=== PATIENT | male | born 1960 | race Caucasian/White ===

== ENCOUNTER → 2017-06-05 | Outpatient (CLI) | payer OTHER | END | disposition home or self-care (01) | LOC: KCIC MRI 07:45 | DX: M48.02 Spinal stenosis, cervical region (principal); M48.061 Spinal stenosis, lumbar region without neurogenic claudication; M47.892 Other spondylosis, cervical region; M47.897 Other spondylosis, lumbosacral region; M12.88 Other specific arthropathies, not elsewhere classified, other specified site; M51.27 Other intervertebral disc displacement, lumbosacral region | CPT/HCPCS: 72141; 72148 ==

== ENCOUNTER → 2020-06-23 | Outpatient (CLI) | payer OTHER ==
[~2020-06-23] MED LIST: DEXA4TAB63 PO; DOXY100C2 PO; GABA300C18 PO; HYDR-2145 PO; HYDR-2765 PO; PANT40TA77 PO; SUCR1ORA5 PO; SUCR1TAB PO; TAMS0.4C97 PO
--- NOTE | 2020-06-23 11:12 | KCIC ---
MR LUMBAR SPINE WO -[id number] History: Reason: LUMBAGO WITH SCIATICA LEFT SIDE / Spl. Instructions: / History: LBP with previous s urgery in 2011. BLE pain, alternating left and right leg Technique: Multiplanar, multi sequential MR imaging was performed of the lumbar spine. Comparison: MRI June 05, 2017 Findings: Transitional lumbosacral anatomy. In keeping with previous numbering system L5-S1 disc space is ident ified on axial T2 sequence 6 image 20. Slight retrolisthesis L5 on S1. Normal vertebral body height. No fracture. Conus terminates at the normal location. No evidence of nerve root clumping. L1-L2: No canal or neuroforaminal narrowing. L2-L3: No canal or neuroforaminal narrowing. L3-L4: Small disc bulge. Mild facet arthropathy. No canal or neuroforaminal narrowing. L4-L5: Small disc bulge. Mild facet arthropathy. No canal or neuroforaminal narrowing. L5-S1: Disc height loss. Disc bulge. Postoperative changes right hemilaminectomy. Moderate facet art hropathy. No canal narrowing. Mild to moderate bilateral neuroforaminal narrowing, unchanged. Impression: 1. Transitional lumbosacral anatomy, as described. 2. Multilevel lumbar spondylosis most prominent L5-S1, unchanged. Electronically signed by: Jaime Izaguirre DO (06/23/2020 11:09 AM) [id number]
== END ==
LOC: KCIC MRI 09:57
PROVIDERS: ATTEND Physician Assistant Medical
DX: M47.817 Spondylosis without myelopathy or radiculopathy, lumbosacral region (principal)
CPT/HCPCS: 72148

== ENCOUNTER → 2020-10-29 | Outpatient (CLI) | payer OTHER ==
[2020-08-20 11:00] VITALS: BP 119/73
--- NOTE | 2020-10-29 12:23 | RAD ---
PQRS Compliance Statement: One or more of the following individualized dose reduction techniques were utilized for this examinat ion: 1. Automated exposure control 2. Adjustment of the mA and/or kV according to patient size 3. Use of iterative reconstruction technique CT THORAX WO 10/29/2020 9:26 AM Indication: Pneumonia due to Covid 19 COMPARISON: None available. TECHNIQUE: Multiple axial CT images of the chest were obtained without intravenous contrast administr ation. Coronal and sagittal reformats are provided. FINDINGS: Peripheral reticular interstitial changes and groundglass opacities are identified throughout the andrea gs with relative subpleural sparing. No pleural effusions, pulmonary vascular congestion or pneumotho rax. Central airways are clear. No bronchial wall thickening. No honeycombing. No traction bronchiect asis. No focal consolidative change. Thyroid gland is normal in appearance. Right paratracheal lymph node measures 7 mm. Heart size within normal limits. Three-vessel coronary artery vascular calcificat ions are identified. Thoracic aorta is normal in course and caliber. Hypoattenuation of the hepatic p arenchyma suggestive of hepatic steatosis. Calcifications within the spleen likely represent sequela prior granulomatous exposure. No suspicious osseous abnormality is identified. IMPRESSION: Mild peripheral reticular interstitial changes with associated groundglass opacities noted throughout the lungs with lower lung zone predominance. Findings most favor pneumonitis of infectious/inflammat ory etiology, likely associated with recent Covid 19 pneumonia. 3 month follow-up chest CT could be o f benefit to assess for resolution or improvement. Electronically signed by: Petra Kruse MD (10/29/2020 12:21 PM) [id number]
== END ==
LOC: CT 09:24
PROVIDERS: ATTEND Internal Medicine Pulmonary Disease
DX: U07.1 COVID-19 (principal); J12.82 Pneumonia due to coronavirus disease 2019
CPT/HCPCS: 71250

== ENCOUNTER → 2020-11-06 | Day surgery (SDC) | payer OTHER ==
[~2020-11-06] VITALS: Ht 172.7 cm; Wt 100.9 kg
[~2020-11-06] MED LIST changes: +HYDROmorphone 2 MG/ML VIAL IVP PRN; +IV RINGERS,LACTATED 1000ML 1,000 ML IV SCH; +LIDOCAINE 2% PF 5 ML VIAL. ONE; +MORPHINE SULFATE 2 MG/ML VIAL. IVP PRN; +PROCHLORPERAZINE 10 MG/2 ML VIAL. IVP PRN; +PROPOFOL 10 MG/ML (20ML) VIAL. IV ONE; +fentaNYL PF VIAL 100 MCG/2 ML VIAL IVP PRN
[2020-11-06 06:26] VITALS: BP 126/74
[2020-11-06 07:49] VITALS: BP 115/69
== END | disposition home or self-care (01) ==
LOC: SURG 06:10
PROVIDERS: ATTEND Internal Medicine Gastroenterology
DX: R13.10 Dysphagia, unspecified (principal); K31.89 Other diseases of stomach and duodenum; K21.9 Gastro-esophageal reflux disease without esophagitis; G47.30 Sleep apnea, unspecified; M19.90 Unspecified osteoarthritis, unspecified site; Z79.899 Other long term (current) drug therapy; Z98.890 Other specified postprocedural states; Z72.89 Other problems related to lifestyle
CPT/HCPCS: 43235; 43450; J2704

== ENCOUNTER → 2020-12-17 | Outpatient (CLI) | payer OTHER ==
[2020-11-06 07:49] VITALS: BP 115/69
[~2020-12-17] MED LIST changes: +ALBU2.5V8 IH; -HYDROmorphone 2 MG/ML VIAL IVP PRN; +IOHEXOL 180 MG/ML 10 ML VIAL. ONE; -IV RINGERS,LACTATED 1000ML 1,000 ML IV SCH; -LIDOCAINE 2% PF 5 ML VIAL. ONE; -MORPHINE SULFATE 2 MG/ML VIAL. IVP PRN; -PROCHLORPERAZINE 10 MG/2 ML VIAL. IVP PRN; -PROPOFOL 10 MG/ML (20ML) VIAL. IV ONE; -fentaNYL PF VIAL 100 MCG/2 ML VIAL IVP PRN; +methylPREDNISolone ACETATE 40 MG/ML VIAL. ONE; +methylPREDNISolone ACETATE 80 MG/ML VIAL. ONE
--- NOTE | 2020-12-17 11:42 | PDOC1 ---
INITIAL PAIN CONSULT DATE OF SERVICE: DOS: DATE: 12/17/20 TIME: 11:35 CHIEF COMPLAINT: Chief Complaint: Low back and left greater than right lower extremity pain HISTORY OF PRESENT ILLNESS: 60-year-old male presents history of pain low back bilateral lower extremities left greater than right lower extremity pain since about 1979 but getting worse over the past 6 months or so not result of any specific injury or accident that he is aware of but getting more noticeable in the low back rating left lower extremity posterior gluteus posterior lateral thigh lateral anterior thigh and some on the right side as well but much more significant on the left this is worse with walking standing changing positions getting up from seated position standing for prolonged periods greater than 20 minutes patient reports it wakes him sleep about 3-4 times a night can affect his bladder control with some increased urgency but no incontinence patient reports that does affect his ability to walk fairly significantly. Patient has had physical therapy in the [facility] chiropractic treatment is doing exercise currently also had epidural injections in 2014 which were very helpful patient is taking hydrocodone as well as gabapentin both of which decrease in pain but only slightly patient reports pain is stabbing throbbing the back shooting the lower extremities worse on the left side is noted tingling with numbness radiating pain in the left leg aching cramping can be burning and at worst at night patient rates disability rating 0- 10 10 being the worst is a 7 with abnormal possibility recreation activity 8 with recreation and social activity 6 with occupation 10 with sexual behavior and 6 with self-care 7 with life support activities. Patient did have MRI of the lumbar spine dated June 23, 2020 showing at L5-S1 disc height loss with disc bulge postoperative changes with right hemilaminectomy mild to moderate bilateral neuroforaminal narrowing. PAST MEDICAL HISTORY: PMH: Hearing loss, shortness of breath arthritis PREVIOUS SURGERIES: Past Surgical Hx: Laminectomy 2005 lumbar, right inguinal hernia repair, tonsillectomy, knee scope CURRENT MEDICATIONS: Current Meds: Active Scripts Medications Dose Route/Sig Max Daily Dose Days Date Category Proair Hfa (Albuterol Sulfate) 8.5 Gm Hfa.aer.ad 2 Puff IH PRN Q4-6HRS PRN 21 12/17/20 Reported Pantoprazole Sodium (Pantoprazole Sodium) 40 Mg Tablet.dr 40 Mg PO DAILYAC 07/10/20 Reported Gabapentin (Gabapentin) 300 Mg Capsule 600 Mg PO BID 07/10/20 Reported Hydrocodone-Apap 7.5-325 (Hydrocodone Bit/Acetaminophen) 1 Tab Tablet 1 Tab PO PRN Q4HRS PRN 07/10/20 Reported Flomax (Tamsulosin Hcl) 0.4 Mg Cap.er.24h 0.4 Mg PO BIDACLD 07/10/20 Reported ALLERGIES; Allergies: Coded Allergies: No Known Drug Allergies (Unverified , 11/06/20) FAMILY HISTORY: Family Hx: No major medical problems or conditions that he is aware of SOCIAL HISTORY: Social Hx: Patient is nondrug alcohol does not smoke says any illegal illicit recreational drugs is and lives locally in [facility] REVIEW OF SYSTEMS: ROS: Positive for those items mentioned in history of present illness, all systems are reviewed, otherwise negative ,and are complete full and well-documented on patient's chart. PHYSICAL EXAM: VS: Blood pressure is 126/80 pulse 67 respirations 18 temperature 97.6 Height is 5 feet 8 inches weight 219 pounds PE: PHYSICAL EXAMINATION: GENERAL: The patient is awake, alert, oriented, appropriate, very pleasant in demeanor. HEENT: Shows normocephalic, atraumatic. Extraocular movements are intact and symmetrical. Oral cavity: Mucous membranes moist and pink. Dentition is intact. NECK: Shows anterior throat supple without palpable lymphadenopathy noted. Swallow reflex symmetrical. CHEST: Shows normal on inspection. Breath sounds are clear bilaterally, distant but no rales rhonchi or wheeze auscultated. HEART: Shows S1, S2 clear. No murmurs auscultated. ABDOMEN: Soft, nontender, nondistended, obese. No palpable organomegaly is noted. No rebound or guarding demonstrated. BACK: Shows spine grossly in the midline. Normal-appearing cervical lordotic curvature. There is slightly increased thoracic kyphosis, some minor flattening of the lumbar lordotic curvature. Lumbar paraspinous muscles show symmetrical on inspection, on palpation shows some moderate tenderness diffusely throughout the upper, middle and lower distribution of the paraspinous muscles bilaterally and also into the lower thoracic paraspinous musculature, firm and tender, but without specific trigger points, without radiation of pain. The patient has good rotational motion of the lumbar spine, both laterally as well as extension and flexion without significant difficulty. No tenderness over the spinous processes, sacrum or sacroiliac regions. EXTREMITIES: Lower extremities show deep tendon reflexes 2+ in the patellar and tendo calcaneus tendons. Motor exam is 5 on a scale of 5 with right dorsiflexion, extension, quadriceps and hamstring flexion and 4/5 on the left. Peripheral pulses are [] posterior tibial. No peripheral edema is noted bilaterally. Lower extremities are warm and dry to touch, equal in color and appearance. Straight leg raise noted to be positive on the left at approximate 40 degrees decreased with knee flexion, right side is negative. Gaenslen's and Kenny's maneuvers are negative bilateral as well. The patient is able to stand, stand on his toes without significant difficulty walks with a normal- appearing gait does not appear to favor the right or left lower extremity significantly is not use any assistive devices to ambulate. SKIN: Shows warm and dry, good turgor. No edema. No sores, rashes or bruising throughout. IMPRESSION: Impression: 60-year-old male with long history low back now left greater than right lower extremity pain for the past 6 months or so. MRI scan lumbar spine as noted Shortness of breath Hearing loss Arthritis Plan: Options were discussed with patient including conservative medical management continued physical therapies and interventional techniques. Patient might proceed ventral techniques. We discussed a lumbar epidural steroid injections description as well as anatomical models to describe the procedure. Risks were discussed including but not limited to: Bleeding, infection, possibility of epidural hematoma and subsequent neurological compromise, dural puncture, headaches, spinal cord and/or nerve damage, side effects of steroid medication, and poor results regarding pain control. Patient understands and wished to proceed. Patient will return to clinic in approximate 2 weeks for follow-up, was counseled return appointment activity level and side effects to be aware of. Procedure is lumbar epidural steroid injection under local anesthetic using s terile prep and drape at the L5-S1 level using C-arm fluoroscopic guidance in both AP and lateral views medications injected is 120 mg Depo-Medrol +10mL preservative-free normal saline and 2 mL contrast- condition at discharge is stable patient tolerated procedure well had no complications. ELLE COLON MD Dec 17, 2020 11:42
--- NOTE | 2020-12-17 11:42 | PDOC4 ---
Procedure Note: Procedure Note: Patient was consented for lumbar epidural steroid injection. Risks were discussed including but not limited to: Bleeding, infection, possibility of epidural hematoma and subsequent neurological compromise, dural puncture, headaches, spinal cord and/or nerve damage, side effects of steroid medication, and poor results regarding pain control. Patient understands and wished to proceed. Procedure is lumbar epidural steroid injection under local anesthetic using sterile prep and drape at the L5-S1 level using C-arm fluoroscopic guidance in both AP and lateral views medications injected is 120 mg Depo-Medrol +10mL preservative-free normal saline and 2 mL contrast- condition at discharge is stable patient tolerated procedure well had no complications. ELLE COLON MD Dec 17, 2020 11:42
== END | disposition home or self-care (01) ==
LOC: PNCL 08:57
PROVIDERS: ATTEND Anesthesiology
DX: M54.5 Low back pain (principal); M79.604 Pain in right leg; M19.90 Unspecified osteoarthritis, unspecified site; G47.30 Sleep apnea, unspecified; K21.9 Gastro-esophageal reflux disease without esophagitis; Z72.89 Other problems related to lifestyle; Z79.899 Other long term (current) drug therapy; Z98.890 Other specified postprocedural states
CPT/HCPCS: 62323; J1030; J1040; Q9965

== ENCOUNTER → 2021-01-18 | Outpatient (CLI) | payer OTHER ==
[2020-11-06 07:49] VITALS: BP 115/69
[~2021-01-18] MED LIST changes: -DOXY100C2 PO; +DOXY100C3 PO; -IOHEXOL 180 MG/ML 10 ML VIAL. ONE; -methylPREDNISolone ACETATE 40 MG/ML VIAL. ONE
--- NOTE | 2021-01-18 08:34 | PDOC4 ---
Procedure Note: ICD 10 Code: ICD 10 Code: M54.17 M51.36 96.1 Procedure Note: Patient was consented for lumbar epidural steroid injection with fluoroscopic guidance. Risks were discussed including but not limited to: Bleeding, infection, possibility of epidural hematoma and subsequent neurological compromise, dural puncture, headaches, spinal cord and/or nerve damage, side effects of steroid medication, and poor results regarding pain control. Patient understands and wished to proceed. Procedure is lumbar epidural steroid injection under local anesthetic using ster ile prep and drape at the L5-S1 level using C-arm fluoroscopic guidance in both AP and lateral views medications injected is 120 mg Depo-Medrol +10mL preservative-free normal saline and 2 mL contrast- condition at discharge is stable patient tolerated procedure well had no complications. ELLE COLON MD Jan 18, 2021 08:34
--- NOTE | 2021-01-18 08:34 | PDOC ---
Progress Note - Pain Clinic Date of Service: DOS: DATE: 01/18/21 TIME: 08:30 Diagnosis: Dx: Lumbar radiculopathy with lumbar degenerative disease and lumbar postlaminectomy syndrome History or Present Illness: HPI: 60-year-old male returns for follow-up status post lumbar epidural steroid injection x1. Patient reports did better after the first week or so when he is increase his activity at home significantly with standing on ladders doing painting bending stooping reaching lifting which is caused the pain to return fairly quickly in the low back and the bilateral lower extremities. Patient reports in the posterior gluteus posterior thigh posterior calf worse on the left than the right but present bilaterally patient scribes pain is aching and shooting tingling burning cramping radiating on and off in intensity better with sitting or laying down but is been waking up from sleep again about once every 6 hours patient reports initially did not awaken from sleep for the first week or so patient rates his pain as 8 on scale 10 is worse with over the past week 6 on average/and is a 5 today. Patient also reports that he was seen in the emergency room with "mini strokes" x2 after his last visit. Patient was not giving any specific treatments or interventions for this but is somewhat concerned and we discussed that with him and he will discuss it with his primary care physician for further more complete work-up as well. Patient reports also some increased shortness of breath and is using his inhaler more often than he had prior to his last visit, and we discussed the importance of discussing this with his primary physician regarding his pulmonary status as well. Patient understands directed. Physical Exam: VS: Blood pressure 126/80 pulse 64 respirations 18 temperature 98.1 F height 5 feet 8 inches weight is 216 pounds PE: PHYSICAL EXAMINATION: GENERAL: The patient is awake, alert, oriented, appropriate, very pleasant in demeanor HEENT: Shows normocephalic, atraumatic. Extraocular movements are intact and symmetrical. Oral cavity: Mucous membranes moist and pink. Dentition is intact. NECK: Shows anterior throat supple without palpable lymphadenopathy noted. Swallow reflex symmetrical. CHEST: Shows normal on inspection. Breath sounds are clear bilaterally, distant but no rales or rhonchi. HEART: Shows S1, S2 clear. No murmurs auscultated. ABDOMEN: Soft, nontender, nondistended, obese. No palpable organomegaly is noted. BACK: Shows spine grossly in the midline. Normal-appearing cervical lordotic curvature. There is slightly increased thoracic kyphosis, some minor flattening of the lumbar lordotic curvature. Lumbar paraspinous muscles show symmetrical on inspection, on palpation shows some moderate tenderness diffusely throughout the upper, middle and lower distribution of the paraspinous muscles without specific trigger points, without radiation of pain. The patient has good rotational motion of the lumbar spine, both laterally as well as extension and flexion without difficulty. EXTREMITIES: Lower extremities show deep tendon reflexes 2+ in the patellar and tendo calcaneus tendons. Motor exam is 5 on a scale of 5 with right dorsiflexion, extension, quadriceps and hamstring flexion and 4/5 on the left. Peripheral pulses are 1+ posterior tibial. No peripheral edema is noted bilaterally. Lower extremities are warm and dry to touch, equal in color and appearance. SKIN: Shows warm and dry, good turgor. No edema. No sores, rashes or bruising throughout. Procedure: Procedure: Options discussed with the patient. Patient's old chart was reviewed his current medication regimen updated current review of systems updated today as well. We will proceed with a second in a series lumbar epidural steroid injection today with fluoroscopic guidance. Risks were discussed including but not limited to: Bleeding, infection, possibility of epidural hematoma and subsequent neurological compromise, dural puncture, headaches, spinal cord and/or nerve damage, side effects of steroid medication, and poor results regarding pain control. Patient understands and wished to proceed. Patient return to the clinic in approximately 2 weeks for follow-up, was counseled as to return appointment activity level and side effects beware of. Medication Injected: Med Injected: Procedure is lumbar epidural steroid injection under local anesthetic using sterile prep and drape at the L5-S1 level using C-arm fluoroscopic guidance in both AP and lateral views medications injected is 120 mg Depo-Medrol +10mL preservative-free normal saline and 2 mL contrast- condition at discharge is stable patient tolerated procedure well had no complications. Condition at Discharge: Condition at Discharge: Condition at discharge stable, patient tolerated the procedure well and had no complications. ELLE COLON MD Jan 18, 2021 08:34
== END | disposition home or self-care (01) ==
LOC: PNCL 08:02
PROVIDERS: ATTEND Anesthesiology
DX: M51.16 Intervertebral disc disorders with radiculopathy, lumbar region (principal); M96.1 Postlaminectomy syndrome, not elsewhere classified; G47.30 Sleep apnea, unspecified; K21.9 Gastro-esophageal reflux disease without esophagitis; M19.90 Unspecified osteoarthritis, unspecified site; Z79.899 Other long term (current) drug therapy; Z72.89 Other problems related to lifestyle; Z98.890 Other specified postprocedural states
CPT/HCPCS: 62323; J1040

== ENCOUNTER → 2021-02-02 | Outpatient (CLI) | payer OTHER ==
[2020-11-06 07:49] VITALS: BP 115/69
[~2021-02-02] MED LIST changes: +IOHEXOL 180 MG/ML 10 ML VIAL. ONE
--- NOTE | 2021-02-02 09:32 | PDOC ---
Progress Note - Pain Clinic Date of Service: DOS: DATE: 02/02/21 TIME: 09:29 Diagnosis: Dx: Lumbar radiculopathy with lumbar degenerative disease and lumbar postlaminectomy syndrome History or Present Illness: HPI: 60-year-old male returns for follow-up status post lumbar epidural steroid injection x2. Patient reports only about 50% improvement and short-lived of the pain returning low back the bilateral lower extremities now with some stumbling and falling which is a new finding he had not had that previously patient repo rts weakness and stumbling also significant cramping in the lower extremities especially at rest patient reports pain is burning cramping stabbing in the back aching and shooting in the legs bilaterally right and left posterior gluteus posterior thigh posterior calves radiating can be constant and severe patient reports a 10 on scale 10 is worse over the past week 7 on average 5 its least is a 7 today. Patient reports no bowel or bladder incontinence but significant weakness with ambulating and stumbled several times as noted. Physical Exam: VS: Blood pressure is 171/81 pulse 88 respirations 18 temperature 98.2 F height is 5 feet 8 inches weight is 212 pounds PE: PHYSICAL EXAMINATION: GENERAL: The patient is awake, alert, oriented, appropriate, very pleasant in demeanor HEENT: Shows normocephalic, atraumatic. Extraocular movements are intact and symmetrical. Oral cavity: Mucous membranes moist and pink. Dentition is intact. NECK: Shows anterior throat supple without palpable lymphadenopathy noted. Swallow reflex symmetrical. CHEST: Shows normal on inspection. Breath sounds are clear bilaterally, no rales or rhonchi. HEART: Shows S1, S2 clear. No murmurs auscultated. ABDOMEN: Soft, nontender, nondistended, obese. No palpable organomegaly is noted. BACK: Shows spine grossly in the midline. Normal-appearing cervical lordotic curvature. There is slightly increased thoracic kyphosis, some minor flattening of the lumbar lordotic curvature. Lumbar paraspinous muscles show symmetrical on inspection, on palpation shows some moderate tenderness diffusely throughout the upper, middle and lower distribution of the paraspinous muscles, without specific trigger points, without radiation of pain. The patient has good rotational motion of the lumbar spine, both laterally as well as extension and flexion without significant difficulty. No tenderness over the spinous processes, sacrum or sacroiliac regions. EXTREMITIES: Lower extremities show deep tendon reflexes 2+ in the patellar and tendo calcaneus tendons. Motor exam is 5 on a scale of 5 with right dorsiflexion, extension, quadriceps and hamstring flexion and 4/5 on the left. Peripheral pulses are + posterior tibial. No peripheral edema is noted bilater ally. Lower extremities are warm and dry to touch, equal in color and appearance. SKIN: Shows warm and dry, good turgor. No edema. No sores, rashes or bruising throughout. Procedure: Procedure: Options discussed with patient. Patient's old chart was reviewed his current medication regimen updated current review of systems updated today as well. We will proceed with a caudal approach epidural steroid injection today with fluoroscopic guidance. Risks were discussed including but not limited to: Bleeding, infection, possibility of epidural hematoma and subsequent neurological compromise, dural puncture, headaches, spinal cord and/or nerve damage, side effects of steroid medication, and poor results regarding pain control. Patient understands and wished to proceed. She will return to clinic in approximate 2 weeks for follow-up, was counseled as return appointment, activity level, and side effects to be aware of. Medication Injected: Med Injected: Procedure is lumbar epidural steroid injection under local anesthetic using sterile prep and drape at the caudal level using C-arm fluoroscopic guidance in both AP and lateral views medications injected is 120 mg Depo-Medrol +10mL preservative-free normal saline and 2 mL contrast- condition at discharge is stable patient tolerated procedure well had no complications. Condition at Discharge: Condition at Discharge: Condition at discharge stable, patient alert the procedure well and had no complications. ELLE COLON MD Feb 02, 2021 09:32
--- NOTE | 2021-02-02 09:33 | PDOC4 ---
Procedure Note: ICD 10 Code: ICD 10 Code: M54.17 M 96.1 M51.87 Procedure Note: Patient was consented for caudal approach epidural steroid injection with fluoroscopic guidance. Risks were discussed including but not limited to: Bleeding, infection, possibility of epidural hematoma and subsequent neurological compromise, dural puncture, headaches, spinal cord and/or nerve damage, side effects of steroid medication, and poor results regarding pain control. Patient understands and wished to proceed. Procedure is lumbar epidural steroid injection under local anesthetic using sterile prep and drape at the caudal level using C-arm fluoroscopic guidance in both AP and lateral views medications injected is 120 mg Depo-Medrol +10mL preservative-free normal saline and 2 mL contrast- condition at discharge is stable patient tolerated procedure well had no complications. ELLE COLON MD Feb 02, 2021 09:32
== END | disposition home or self-care (01) ==
LOC: PNCL 08:26
PROVIDERS: ATTEND Anesthesiology
DX: M51.16 Intervertebral disc disorders with radiculopathy, lumbar region (principal); M96.1 Postlaminectomy syndrome, not elsewhere classified; G47.30 Sleep apnea, unspecified; K21.9 Gastro-esophageal reflux disease without esophagitis; M19.90 Unspecified osteoarthritis, unspecified site; Z79.899 Other long term (current) drug therapy; Z98.890 Other specified postprocedural states
CPT/HCPCS: 62323; J1040; Q9965

== ENCOUNTER → 2021-02-11 | Outpatient (CLI) | payer OTHER ==
[2020-11-06 07:49] VITALS: BP 115/69
[~2021-02-11] MED LIST changes: -IOHEXOL 180 MG/ML 10 ML VIAL. ONE; -methylPREDNISolone ACETATE 80 MG/ML VIAL. ONE
--- NOTE | 2021-02-11 11:42 | NUR ---
Patient called states his pain is not better after 3 epidurals. States he would like to see Dr Osorio . Patient states his pain level is between a 7-10. Dr Cooper spoke with patient .. Appointment made with Dr Osorio for consult. Patient notifyed.
--- NOTE | 2021-02-11 12:33 | PDOC ---
Progress Note - Pain Clinic Date of Service: DOS: DATE: 02/11/21 TIME: 12:31 Diagnosis: Dx: Telemedicine visit today patient's identity confirmed with full name and date of . Total time spent: 12 minutes 60-year-old male status post lumbar epidural steroid junctions and caudal epidural steroid injection x1 reports still significant pain persistent after last injection in the low back and bilateral lower extremities with weakness and stiffness and cramping in the low back and legs slightly better after the last injection only for few days the pain returned to baseline fairly quickly. We had discussed possible neurosurgical evaluation the patient would like to move forward with that. Patient reports no bowel or bladder incontinence no motor loss but significant fatigability of bilateral lower extremities after last injection. We will make the neurosurgical evaluation referral and contact patient with the time and date for that. In the meantime, patient will continue with stretching strength exercises and oral analgesics as currently. Physical Exam: PE: ELLE COLON MD Feb 11, 2021 12:33
== END ==
LOC: PNCL 11:24
PROVIDERS: ATTEND Anesthesiology
DX: M54.5 Low back pain (principal)
CPT/HCPCS: G0463

== ENCOUNTER → 2021-03-05 | Outpatient (CLI) | payer OTHER ==
[2020-11-06 07:49] VITALS: BP 115/69
[~2021-03-05] MED LIST changes: +DOCU-109 PO; +IOHEXOL 180 MG/ML 10 ML VIAL. IJ ONE; +LIDOCAINE 1% Multi-Dose 20 ML VIAL. INJ ONE; +MAGN400C PO; +METH-562 PO; +MULT-245 PO
--- NOTE | 2021-03-05 13:38 | RAD ---
EXAM: Fluoroscopic guided lumbar puncture for CT myelography; lumbar spine CT myelogram. HISTORY: Back pain and lower extremity radiculopathy. TECHNIQUE: The risks of the procedure discussed with the patient and written and verbal consent was o btained. A timeout was performed. The patient was placed in a prone position on the fluoroscopy table and a site overlying L4-L5 with suspected for needle entry. The skin in this location was sterilely prepped, draped and infiltrated with 1 percent lidocaine. A 25-gauge needle was advanced into the the kylie sac. Appropriate needle tip position was confirmed with spontaneous yield of CSF within the needl e hub. 15 cc Isovue 180 intrathecal contrast was hand injected into the thecal sac. The needle was re moved and a sterile bandage was placed at the needle entry site. Prone and upright lateral neutral, f lexion and extension views of the lumbar spine were obtained. A total of 4 fluoroscopic images were o btained for total fluoroscopy time of 0.7 minutes. The patient was transferred to the CT suite for th e post injection CT portion of the exam and discharged in stable condition without complication. *One or more of the following individualized dose reduction techniques were utilized for this examina tion: 1. Automated exposure control. 2. Adjustment of the mA and/or kV according to patient size. 3. Use of iterative reconstruction technique. COMPARISON: MRI dated 06/23/2020. FINDINGS: There is a transitional lumbosacral segment. Based on the number of nonrib-bearing vertebra l segments, this is considered a sacralized L5 segment with rudimentary L5-S1 disc for this dictation . Based on this numbering system, there is minimal lumbar levocurvature centered at L3-L4. There is 2 mm retrolisthesis of L4 on L5. There is degenerative endplate remodeling with disc space narrowing, osteophytosis, Schmorl's node formation and vacuum phenomenon at L4-L5. There is minimal endplate rem odeling at the remainder of the lumbar levels. There is no acute or subacute fracture. There is no santiago spicious lytic or sclerotic osseous lesion. The conus terminates at L1-L2. There is mild calcified at herosclerotic plaque involving the aorta, iliac bifurcation and aortic branch vessels. There is mild degenerative subchondral sclerosis and vacuum phenomenon involving the sacroiliac joints. There is santiago spected inferior left renal cortical scarring. At L1-L2, there is no stenosis. At L2-L3, there is a mild disc bulge and endplate remodeling. There is no stenosis. At L3-L4, there is a mild disc bulge and endplate remodeling. There is mild right facet arthropathy. There is slightly prominent dorsal epidural fat. There is mild right greater than left foraminal sten osis. There is minimal central canal stenosis. At L4-L5, there is a disc bulge and endplate osteophytosis. There is mild left facet arthropathy. The re is slight retrolisthesis. There is moderate bilateral foraminal stenosis. IMPRESSION: 1. Transitional lumbosacral segment, a normal variant. Given the number of nonrib-bearing lumbar segm ents, this is considered a sacralized L5 segment for this dictation. Note is made that this segment i s considered S1 on the comparison MRI. 2. Multilevel degenerative change involving the lumbar spine, described in detail above. This is asso ciated with mild right greater than left foraminal and minimal central canal stenosis at L3-L4 and mo derate bilateral foraminal stenosis at L4-L5. These findings are unchanged compared to the prior MRI, allowing for differences in imaging modality. Electronically signed by: Chante Dorman MD (03/05/2021 1:36 PM) [id number]
== END | disposition home or self-care (01) ==
LOC: RAD 12:19
PROVIDERS: ATTEND Neurological Surgery
DX: M47.26 Other spondylosis with radiculopathy, lumbar region (principal); M48.061 Spinal stenosis, lumbar region without neurogenic claudication; G47.30 Sleep apnea, unspecified; K21.9 Gastro-esophageal reflux disease without esophagitis; M19.90 Unspecified osteoarthritis, unspecified site; Z79.899 Other long term (current) drug therapy; Z98.890 Other specified postprocedural states; Z72.89 Other problems related to lifestyle
CPT/HCPCS: 62304; 72132; J3490; Q9965

== ENCOUNTER → 2021-03-29 | Outpatient (CLI) | payer OTHER ==
[2020-11-06 07:49] VITALS: BP 115/69
[~2021-03-29] MED LIST changes: -IOHEXOL 180 MG/ML 10 ML VIAL. IJ ONE; -LIDOCAINE 1% Multi-Dose 20 ML VIAL. INJ ONE
[2021-03-29 16:13] LABS: BASO % 1 % (0-3); EOS # 0.3 x10^3/uL (0.0-0.7); EOS % 4 % (0-3); HEMATOCRIT 42.1 % (39.0-53.0); HEMOGLOBIN 14.3 g/dL (13.0-17.5); LYMPH # 2.3 x10^3/uL (1.0-4.8); LYMPH % 30 % (24-48); MEAN CORPUSCULAR HEMOGLOBIN 31 pg (25-35); MEAN CORPUSCULAR HGB CONC 34 g/dL (31-37); MEAN CORPUSCULAR VOLUME 91 fL (79-100); MONO # 0.7 x10^3/uL (0.0-1.1); MONO % 10 % (0-9); NEUT # 4.2 x10^3/uL (1.8-7.7); NEUT % 56 % (31-73); PLATELET COUNT 219 x10^3/uL (140-400); RED BLOOD COUNT 4.63 x10^6/uL (4.30-5.70); RED CELL DISTRIBUTION WIDTH 14.2 % (11.5-14.5); WHITE BLOOD COUNT 7.6 x10^3/uL (4.0-11.0)
[2021-03-29 19:08] LABS: ALBUMIN 3.9 g/dL (3.4-5.0); ALBUMIN/GLOBULIN RATIO 1.1 (1.0-1.7); CALCIUM 9.1 mg/dL (8.5-10.1); CREATININE 0.9 mg/dL (0.7-1.3); GFR 85.2; POTASSIUM 4.3 mmol/L (3.5-5.1); TOTAL BILIRUBIN 0.7 mg/dL (0.2-1.0); TOTAL PROTEIN 7.4 g/dL (6.4-8.2)
== END ==
LOC: SURGPAT 13:41
PROVIDERS: ATTEND Neurological Surgery
DX: Z01.812 Encounter for preprocedural laboratory examination (principal); M54.17 Radiculopathy, lumbosacral region; M48.07 Spinal stenosis, lumbosacral region
CPT/HCPCS: 36415; 80053; 85025; 87641

== ENCOUNTER 2021-04-05 07:10 | Day surgery (SDC) | payer OTHER ==
[2021-03-31 15:57] VITALS: BP 121/78
--- NOTE | 2021-04-02 15:26 | PREOP HP ---
DATE OF SERVICE: 04/05/2021 HISTORY OF PRESENT ILLNESS: The patient is a pleasant 61-year-old who is having difficulty with low back pain and pain that radiates to his left buttock, posterior thigh and leg and foot. He notes a burning pain. There is also some numbness in the lateral side of his left foot. There are no significant symptoms on the right side. The problem has been present for months and slowly worsening. The pain can reach 7-8/10, but when it is severe, it can reach 10/10. Lying down helps. Walking can help at times. He takes gabapentin and hydrocodone to help. He has had physical therapy and lumbar epidural steroid injections as well as chiropractic treatment and uses a TENS unit for the problem. CURRENT MEDICATIONS: Gabapentin, hydrocodone, tamsulosin, sucralfate, pantoprazole. PAST MEDICAL HISTORY: Head and neck injury, tonsillitis, headaches, COVID. PAST SURGICAL HISTORY: Lumbar diskectomy L4-5, knee surgery, hernia repair. FAMILY HISTORY: Spine problems, diabetes, Alzheimer's disease, cancer, hypertension, migraine headaches. SOCIAL HISTORY: Current smoker. 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 with ,2 children. Drinks alcohol 1-2 times per year. Previous smoker, no longer smokes. Does chew tobacco. ALLERGIES: No known drug allergies. REVIEW OF SYSTEMS: A 12-point review of systems was performed and is noncontributory except that mentioned above. PHYSICAL EXAMINATION: GENERAL: Alert, pleasant, in no acute distress. HEENT: Head is normocephalic, atraumatic. SKIN: Warm and dry. Well-healed lumbar incision. MUSCULOSKELETAL: Lumbar paraspinal muscle bulk is normal, restricted range of motion of the lumbar spine, [id number] tenderness of the lower lumbar spine with palpation, normal range of motion of the lower extremities bilaterally. EXTREMITIES: No clubbing, cyanosis or edema. NEUROLOGIC: Alert and oriented x 3. Strength is 5/5 in the lower extremities except for left plantar flexion, which is not antigravity, sensory was intact to light touch in the lower extremities bilaterally except for decrease in sensation in the lateral aspect of his left foot, reflexes were present and symmetric in the lower extremities bilaterally, positive straight leg raising on the left, negative straight leg raising on the right, normal gait. IMAGING: I reviewed a lumbar myelogram and post-myelogram CT scan. On that study, at L5-S1 or L4-L5 depending on counting technique on the left side, there is moderate proximal foraminal stenosis. This does narrow the path of the S1 root as it passes. The stenosis appears to be a combination of calcified disk bulging combined with hypertrophic facet and ligament. ASSESSMENT AND PLAN: The patient has severe lumbar radiculopathy with weakness of plantar flexion. There is lateral stenosis at L5-S1 on imaging studies. I recommended lumbar microsurgery at L5-S1 on the left to see if this will give him some relief. I spoke with him about the technique, the risk and the expected postoperative course. He understands and would like to go ahead. TERELL DR: Ezequiel TID: [id number] YVONNE
[~2021-04-05] VITALS: Ht 172.7 cm; Wt 91.8 kg
[~2021-04-05 07:10] MED LIST changes: +DEXAMETHASONE SOD PHOS 4 MG/ML VIAL ONE; -DOCU-109 PO; +HYDROmorphone 2 MG/ML VIAL IVP PRN; +KETAMINE HCL IN NACL, ISO-OSM 50 MG/5 ML SYRINGE ONE; +LIDOCAINE 2% PF 5 ML VIAL. ONE; -METH-562 PO; +MORPHINE SULFATE 2 MG/ML INJ. IVP PRN; +ONDANSETRON PF 4 MG/2 ML VIAL. ONE; +PHENYLEPHRINE in 0.9% NACL PF 1 MG/10 ML SYRINGE. IV ONE; +PROCHLORPERAZINE 10 MG/2 ML VIAL. IVP PRN; +PROPOFOL 10 MG/ML (20ML) VIAL. IV ONE; +PROPOFOL 50 ML IV ONE; +REMIFENTANIL 1 MG VIAL. IV ONE; +ROCURONIUM 50 MG/5 ML VIAL. ONE; +fentaNYL PF VIAL 100 MCG/2 ML VIAL IVP PRN; +fentaNYL PF VIAL 100 MCG/2 ML VIAL ONE
[2021-04-05] MEDS ORDERED: NEOSTIGMINE METHYLSULFATE 5 MG/5 ML SYRINGE. ONE (07:33)
[2021-04-05 07:47] VITALS: BP 117/72
[2021-04-05] MEDS: IV RINGERS,LACTATED 1000ML 1,000 ML IV SCH (07:51)
[2021-04-05] MEDS: THROMBIN TOPICAL 20,000 UNIT SPRAY.SYRN KIT TP ONE (09:57)
[2021-04-05] MEDS: ceFAZolin SODIUM 1 GM in IV NORMAL SALINE 1000ML BAG 1,000 ML IRR ONE (09:57)
[2021-04-05] MEDS: BUPIVACAINE-EPI 0.5% 30 ML VIAL KIT. ONE (09:57)
[2021-04-05] MEDS: GELATIN SPONGE SIZE 100. ONE (09:57)
[2021-04-05] MEDS: KETOROLAC 60 MG/2 ML VIAL. ONE (09:57)
[2021-04-05] MEDS ORDERED: METH-562 PO (11:24)
[2021-04-05] MEDS ORDERED: DOCU-109 PO (11:24)
--- NOTE | 2021-04-05 11:26 | DISCH ---
DISCHARGE INSTRUCTIONS Condition on Discharge Condition on Discharge: Stable Activity After Discharge Activity Instructions for Disc: Activity as tolerated, Avoid exertion Other activity instructions: no driving for a week Bathing Instructions: Shower-keep dressing dry, No Tub Bath until see Exercise Instruction after Dis: Progress as tolerated Driving Instructions after Dis: Do not drive today Weight Bearing Status after Di: As tolerated Diet after Discharge Diet after Discharge: Regular Additional Diet Restrictions: resume home diet Wound Incision Care Wound/Incision Care: Ice to area for comfort, No wound care needed Other wound/incision instructi: may remove dressing in 48 hours if dry, no soaking Checks after Discharge Checks after discharge: Check blood press - daily, Check blood sugar, ac/hs Contacting the DRJeannie after DC Call your doctor for: Concerns you may have Follow-Up Follow up with: Dr. Callejas's nurse in 2 weeks [phone] Treatment/Equipment after DC Adaptive Equipment Issued: None Discharge Respiratory Equipmen: Oxygen KEYON CALLEJAS MD Apr 05, 2021 11:26
--- NOTE | 2021-04-05 11:33 | OP ---
DATE OF SURGERY: 04/05/2021 PREOPERATIVE DIAGNOSES: Lateral recess and subarticular stenosis, left L5-S1 with left lumbar radiculopathy. POSTOPERATIVE DIAGNOSES: Lateral recess and subarticular stenosis, left L5-S1 with left lumbar radiculopathy. OPERATION PERFORMED: Hemilaminotomy with microdecompression L5-S1, left. The operation was done with EMG monitoring, SSEP monitoring, fluoroscopy, microscopic dissection. SPECIMEN: Decompression. SURGEON: El Gary M.D. SOLO MUSICIAN: YENNI Kwong assisted with the surgery. She assisted with the exposure, the microdecompression as well as the closure. Note that there are nomenclature naming anomalies with this level. I am following the MRI report, which is on the list described as L5-S1. On the myelogram report, this is describes as L4-L5. At any rate, we went to the level where there was lateral stenosis. OPERATIVE INDICATIONS: This is a pleasant gentleman who developed intractable back and left leg pain, which failed conservative measures. On imaging studies, he was found to have compression at the takeoff of the S1 root at the L5-S1 level. I recommended lumbar microsurgery. I spoke to him about the surgery, the risks, the technique and expected postoperative course. He had had previous surgery on the other side at this identical level. DESCRIPTION OF PROCEDURE: Following general endotracheal anesthesia, the patient was positioned prone on the Rodo table. His lumbar region prepped and draped in the standard fashion. CHECO hose and AV impulse boots were applied for DVT prophylaxis. Microscope was draped, fluoroscopy was draped and brought into the field. Monitoring was established. Ancef 2 grams was given less than one hour prior to initiation of the surgery. Using fluoroscopic guidance, incision was made directly over the L5-S1 interspace incorporating much of his previous incision. I dissected down through skin and subcutaneous tissue, reflecting the paraspinal muscles, placed a Gary microdisk retractor, brought in the microscope and using high speed air drill, I burred down a generous hemilaminotomy. There was considerable lateral stenosis with marked compression of the nerve root. I worked superiorly until I visualized the L5 root and followed this short distance out. I then went inferiorly and performed a partial foraminotomy and then worked through the medial edge of the pedicle. There was considerable spurring at this lower region and slightly above, which was compressing and indenting the S1 root. I did feel the disc; it was very firm. I fully decompressed the entire region. At this point, I felt I had an excellent decompression. I did use small amounts of bone wax during the operation as well as bipolar cautery. I irrigated copiously and then closed the wound in layers with absorbable suture after I removed the retractors and obtained perfect hemostasis. The skin was closed with 4-0 subcuticular stitch. I felt the surgery went very well. JONATHAN DR: Amy TID: [id number] YVONNE
[2021-04-05] MEDS ORDERED: HYDROcodone/APAP 7.5/325MG 1 TAB TABLET ONE (11:55)
[2021-04-05] MEDS: HYDROcodone/APAP 7.5/325MG 1 TAB TABLET PO ONE (11:59)
[2021-04-05] MEDS ORDERED: METHOCARBAMOL 750 MG TABLET PO ONE (12:30)
[2021-04-05 12:45] VITALS: BP 129/60
--- NOTE | 2021-04-06 16:15 | PATHOLOGY ---
[facility] Accession Number: [id number] . 01 Material submitted: . vertebral column - LUMBAR DECOMPRESSION . 01 Clinician provided ICD-10: n . 01 Clinical history: . LUMBAR STENOSIS, RADICULOPATHY LUMBER MICRODECOMPRESSION L5-S1 . 02 Diagnosis: Segments of fibrocartilaginous tissue and bone, lumbar decompression: - Degenerative changes of fibrocartilaginous issue. (M:huseyin; 04/06/2021) MBR 04/06/2021 1431 Local . 02 Comment: There is no evidence of an acute inflammatory process or malignancy. (JPM:huseyin; 04/06/2021) . 02 Electronically signed: . Osman Jackson MD, Pathologist NPI- [id number] . 01 Gross description: . The specimen is received in formalin, labeled "Rupert Oconnell, lumbar decompression". Received are multiple segments of pale albert to pink-albert fibrous tissue admixed with fragments of gritty bone measuring 4.1 x 3.8 x 1.0 cm in aggregate dimensions. The specimen is submitted representatively in cassette A1, following light decalcification. ([facility]; 04/05/2021) NRI/NRI 04/05/2021 2119 Local . 02 Pathologist provided ICD-10: M99.73, M54.10 . 02 CPT . 870148, 361038 Specimen Comment: A courtesy copy of this report has been sent to [phone], [phone] Specimen Comment: [id number] Specimen Comment: Report sent to / DR RECINOS Specimen Comment: A duplicate report has been generated due to demographic updates. Performed at: [address] [place] [address] [address], [place], [place] [id number] MD Carlitos Manning MD Phone: [phone] Performed at: [address] [id number] MD Osman Jackson MD Phone: [phone]
== END 2021-04-05 13:11 | disposition home or self-care (01) ==
LOC: SURG 07:10
PROVIDERS: ATTEND Neurological Surgery
DX: M48.061 Spinal stenosis, lumbar region without neurogenic claudication (principal); M54.16 Radiculopathy, lumbar region; M99.73 Connective tissue and disc stenosis of intervertebral foramina of lumbar region; G47.30 Sleep apnea, unspecified; K21.9 Gastro-esophageal reflux disease without esophagitis; M19.90 Unspecified osteoarthritis, unspecified site; Z72.89 Other problems related to lifestyle; Z79.899 Other long term (current) drug therapy; Z98.890 Other specified postprocedural states
CPT/HCPCS: 76000; 88304; 88311; A4223; A4364; A4930; A6254; A6258; J0690; J1100; J1885; J2370; J2405; J2704; J2710; J3010; J3490; J7030; 97116-GP; 97530-GP